=== PATIENT | male | born 1970 | race Caucasian/White ===

== ENCOUNTER 2022-07-12 10:09 | Emergency (ER) | payer OTHER, MEDICARE ==
[2022-07-12 10:58] LABS: Acetaminophen Less than 10.0 mcg/mL (10.0-30.0); Alcohol Less than 10 mg/dL (Less than 10); Salicylate Less than 8.0 mg/dL (15.0-30.0)
[2022-07-12 10:59] LABS: #Basophils 0.1 10x3/uL (0.0-0.2); #Eosinphils 0.1 10x3/uL (0.0-0.5); #Monocytes 0.7 10x3/uL (0.0-1.1); #Neutrophils 7.7 10x3/uL (1.5-8.4); %Basophils 0.6 % (0.0-2.0); %Eosinophils 1.3 % (0.0-6.0); %Lymphocytes 12.8 % (18.0-47.0); %Monocytes 6.9 % (0.0-10.0); %Neutrophils 77.8 % (40.0-75.0); Hemoglobin 14.5 g/dL (13.5-17.5); Mean Corpuscular HGB CONC 32.4 g/dL (32.0-36.0); Mean Corpuscular Hemoglobin 29.7 pg (27.0-33.0); Mean Corpuscular Volume 91.8 fl (81.2-95.1); Mean Platelet Volume 9.5 fl (7.4-10.4); Platelet Count 409 10x3/uL (150-450); RBC Distribution Width 12.2 % (11.5-14.5); Red Blood Cell (RBC) Count 4.88 10x6/uL (4.32-5.72); White Blood Cell (WBC) Count 9.8 10x3/uL (3.5-10.5)
[2022-07-12 11:03] LABS: ALT (SGPT) 22 U/L (8-55); AST (SGOT) 17 U/L (5-34); Acetaminophen Less than 10.0 mcg/mL (10.0-30.0); Albumin 3.9 g/dL (3.5-5.0); Alkaline Phosphatase 52 U/L (40-110); Anion Gap 10 mmol/L (10-20); BUN (Urea Nitrogen) 13 mg/dL (8.4-25.7); Bilirubin, Total 0.5 mg/dL (0.2-1.2); CK (CPK) 79 U/L (30-200); Calc. Creatinine Clearance 0 mL/min (70-130); Calcium 9.5 mg/dL (7.8-10.44); Carbon Dioxide 30 mmol/L (22-29); Chloride 105 mmol/L (98-107); Estimated GFR 89; Globulin 3.6 g/dL (2.4-3.5); Glucose 107 mg/dL (70-105); Potassium 4.8 mmol/L (3.5-5.1); Protein, Total 7.5 g/dL (6.0-8.3); Salicylate Less than 8.0 mg/dL (15.0-30.0); Sodium 140 mmol/L (136-145)
== END 2022-07-12 12:38 | disposition home or self-care (01) ==
LOC: CSHERS 10:09
DX: F79 Unspecified intellectual disabilities (principal); K62.5 Hemorrhage of anus and rectum
CPT/HCPCS: 36415; 80053; 80143; 80179; 80307; 82550; 84443; 85025; 93005

== ENCOUNTER 2022-07-12 15:24 | Emergency (ER) | payer OTHER, MEDICARE | END 2022-07-12 16:11 | disposition home or self-care (01) | LOC: CSHERS 15:24 | DX: M25.551 Pain in right hip (principal) | CPT/HCPCS: 99283 ==

== ENCOUNTER 2022-07-13 07:25 | Emergency (ER) | payer OTHER, MEDICARE | END 2022-07-13 07:51 | disposition home or self-care (01) | LOC: CSHERS 07:25 | DX: R51.9 Headache, unspecified (principal); M54.9 Dorsalgia, unspecified; Z76.5 Malingerer [conscious simulation] | CPT/HCPCS: 99284 ==

== ENCOUNTER 2023-10-30 09:32 | Emergency (ER) | payer MEDICAID, MEDICARE ==
[2023-10-30 10:13] LABS: Bilirubin Neg (Negative); Blood, Urine 10 (Negative); Clarity Clear (Clear); Glucose, Urine (Dipstick) Normal (Negative); Ketone, Urine 15 mg/dL (Negative); Leukocyte Negative (Negative); Nitrite Negative (Negative); Protein, Urine (Dipstick) Negative (Neg-Trace); Specific Gravity, Urine 1.015 (1.005-1.030); Urobilinogen Normal mg/dL (Less than 2)
[2023-10-30 10:24] LABS: Amphetamine Not Detected (NotDetected); Barbiturates Screen Not Detected (NotDetected); Benzodiazepine Screen Not Detected (NotDetected); Cocaine Metabolite Screen Not Detected (NotDetected); Methadone Not Detected (NotDetected); Methamphetamine Not Detected (NotDetected); Opiate Screen Not Detected (NotDetected); Oxycodone Screen Not Detected (NotDetected); Phencyclidine (PCP) Not Detected (NotDetected); THC/Cannabinoid Screen Not Detected (NotDetected); Tricyclic Screen Not Detected (NotDetected)
[2023-10-30 10:30] LABS: #Basophils 0.07 10x3/uL (0.0-0.2); #Eosinphils 0.09 10x3/uL (0.0-0.5); #Neutrophils 6.25 10x3/uL (1.5-8.4); %Basophils 0.8 % (0.0-2.0); %Lymphocytes 18.7 % (18.0-47.0); %Monocytes 5.8 % (0.0-10.0); %Neutrophils 72.9 % (40.0-75.0); Hematocrit 49.3 % (38.8-50.0); Hemoglobin 16.4 g/dL (13.5-17.5); Mean Corpuscular HGB CONC 33.3 g/dL (32.0-36.0); Mean Corpuscular Hemoglobin 28.9 pg (27.0-33.0); Mean Corpuscular Volume 86.9 fL (81.2-95.1); Mean Platelet Volume 9.9 fL (7.4-10.4); Platelet Count 340 10x3/uL (150-450); RBC Distribution Width 13.4 % (11.5-14.5); Red Blood Cell (RBC) Count 5.67 10x6/uL (4.32-5.72); White Blood Cell (WBC) Count 8.6 10x3/uL (3.5-10.5)
[2023-10-30 10:37] LABS: CAUTI Indications for Culture Alt mental st,lethar; RBC/HPF 0-3 HPF (0-3); Squamous Epithelial 0-3 HPF (0-3); WBC/HPF 0-3 HPF (0-3)
[2023-10-30 10:39] LABS: Bacteria/HPF 1+ HPF (None Seen); Mucous/LPF 1+ LPF (<2+)
[2023-10-30 10:40] LABS: Urine Culture Reflex No No
[2023-10-30 10:42] LABS: ALT (SGPT) 25 U/L (8-55); AST (SGOT) 23 U/L (5-34); Albumin 3.9 g/dL (3.5-5.0); Alkaline Phosphatase 55 U/L (40-110); Anion Gap 16 mmol/L (10-20); BUN (Urea Nitrogen) 10 mg/dL (8.4-25.7); Bilirubin, Total 0.9 mg/dL (0.2-1.2); Calc. Creatinine Clearance 0 mL/min (70-130); Calcium 9.8 mg/dL (7.8-10.44); Carbon Dioxide 22 mmol/L (22-29); Chloride 106 mmol/L (98-107); Estimated GFR 76; Globulin 3.8 g/dL (2.4-3.5); Glucose 107 mg/dL (70-105); Potassium 5.1 mmol/L (3.5-5.1); Protein, Total 7.7 g/dL (6.0-8.3); Sodium 139 mmol/L (136-145)
[2023-10-30 10:43] LABS: Acetaminophen Less than 10 mcg/mL (10.0-30.0); Alcohol Less than 10.0 mg/dL (Less than 10); Salicylate Less than 8.0 mg/dL (15.0-30.0)
[2023-10-30] MEDS ORDERED: OLANZapine 2.5 MG TAB ONE (10:55)
== END 2023-10-30 12:29 | disposition home or self-care (01) ==
LOC: CSHERS 09:32
DX: F20.9 Schizophrenia, unspecified (principal); R45.1 Restlessness and agitation; Z79.899 Other long term (current) drug therapy
CPT/HCPCS: 36415; 80053; 80306; 80307; 81001; 84443; 85025; 93005

== ENCOUNTER 2023-11-08 06:29 | Emergency (ER) | payer MEDICARE ==
[2023-11-08] MEDS ORDERED: Ziprasidone 20 MG CAP ONE (06:52)
[2023-11-08 07:06] LABS: #Basophils 0.07 10x3/uL (0.0-0.2); #Eosinphils 0.17 10x3/uL (0.0-0.5); #Monocytes 0.66 10x3/uL (0.0-1.1); #Neutrophils 6.08 10x3/uL (1.5-8.4); %Basophils 0.8 % (0.0-2.0); %Lymphocytes 18.8 % (18.0-47.0); %Monocytes 7.6 % (0.0-10.0); %Neutrophils 69.9 % (40.0-75.0); Hemoglobin 15.8 g/dL (13.5-17.5); Mean Corpuscular HGB CONC 34.3 g/dL (32.0-36.0); Mean Corpuscular Hemoglobin 29.9 pg (27.0-33.0); Mean Platelet Volume 10.1 fL (7.4-10.4); Platelet Count 276 10x3/uL (150-450); RBC Distribution Width 13.2 % (11.5-14.5); Red Blood Cell (RBC) Count 5.29 10x6/uL (4.32-5.72); White Blood Cell (WBC) Count 8.7 10x3/uL (3.5-10.5)
[2023-11-08] MEDS ORDERED: Aripiprazole 10 MG TAB PO SCH (07:15)
[2023-11-08 07:19] LABS: Anion Gap 13 mmol/L (10-20); BUN (Urea Nitrogen) 15 mg/dL (8.4-25.7); Calc. Creatinine Clearance 0 mL/min (70-130); Calcium 8.9 mg/dL (7.8-10.44); Carbon Dioxide 24 mmol/L (22-29); Chloride 108 mmol/L (98-107); Estimated GFR 94; Glucose 107 mg/dL (70-105); Potassium 4.5 mmol/L (3.5-5.1); Sodium 140 mmol/L (136-145)
[2023-11-08 07:21] LABS: Acetaminophen Less than 10 mcg/mL (10.0-30.0); Alcohol Less than 10.0 mg/dL (Less than 10); Salicylate Less than 8.0 mg/dL (15.0-30.0)
[2023-11-08 07:32] LABS: Amphetamine Not Detected (NotDetected); Barbiturates Screen Not Detected (NotDetected); Benzodiazepine Screen Not Detected (NotDetected); Cocaine Metabolite Screen Not Detected (NotDetected); Methadone Not Detected (NotDetected); Methamphetamine Not Detected (NotDetected); Opiate Screen Not Detected (NotDetected); Oxycodone Screen Not Detected (NotDetected); Phencyclidine (PCP) Not Detected (NotDetected); THC/Cannabinoid Screen Not Detected (NotDetected); Tricyclic Screen Not Detected (NotDetected)
== END 2023-11-08 09:02 | disposition home or self-care (01) ==
LOC: CSHERS 06:29
DX: F41.9 Anxiety disorder, unspecified (principal); F20.9 Schizophrenia, unspecified; R45.851 Suicidal ideations; R44.3 Hallucinations, unspecified
CPT/HCPCS: 80048; 80306; 80307; 85025; 99285

== ENCOUNTER 2024-11-24 08:06 | Emergency (ER) | payer MEDICARE ==
[2024-11-24 08:44] LABS: #Basophils 0.05 10x3/uL (0.0-0.2); #Eosinophils 0.11 10x3/uL (0.0-0.5); #Monocytes 0.57 10x3/uL (0.0-1.1); #Neutrophils 4.46 10x3/uL (1.5-8.4); %Basophils 0.7 % (0.0-2.0); %Eosinophils 1.6 % (0.0-6.0); %Lymphocytes 23.0 % (18.0-47.0); %Monocytes 8.3 % (0.0-10.0); %Neutrophils 65.2 % (40.0-75.0); Hematocrit 46.1 % (38.8-50.0); Hemoglobin 14.8 g/dL (13.5-17.5); Mean Corpuscular Hemoglobin 27.7 pg (27.0-33.0); Mean Corpuscular Volume 86.3 fL (81.2-95.1); Platelet Count 274 10x3/uL (150-450); Red Blood Cell (RBC) Count 5.34 10x6/uL (4.32-5.72); White Blood Cell (WBC) Count 6.84 10x3/uL (3.5-10.5)
[2024-11-24 08:58] LABS: Glucose, Urine (Dipstick) Normal (Negative); Leukocyte Negative (Negative); Protein, Urine (Dipstick) 15 mg/dl (Neg-Trace); Specific Gravity, Urine 1.025 (1.005-1.030)
[2024-11-24 09:00] LABS: ALT (SGPT) 27 U/L (Less than 45); AST (SGOT) 22 U/L (11-34); Acetaminophen Less than 10 mcg/mL (Less than 10); Albumin 3.9 g/dL (3.1-4.5); Alkaline Phosphatase 51 U/L (40-110); Anion Gap 13 mmol/L (10-20); BUN (Urea Nitrogen) 18 mg/dL (8.4-25.7); Bilirubin, Total 0.5 mg/dL (0.3-1.2); Calc. Creatinine Clearance 0 mL/min (70-130); Calcium 8.9 mg/dL (7.8-10.44); Carbon Dioxide 25 mmol/L (22-29); Chloride 108 mmol/L (98-107); Globulin 3.4 g/dL (2.4-3.5); Glucose 128 mg/dL (70-105); Potassium 3.9 mmol/L (3.5-5.1); Salicylate Less than 8.0 mg/dL (Less than 8.0); Sodium 142 mmol/L (136-145)
[2024-11-24 09:06] LABS: Cocaine Metabolite Screen Negative (Negative); THC/Cannabinoid Screen Negative (Negative); Tricyclic Screen PRELIM POSITIVE (Negative)
[2024-11-24 09:15] LABS: Bacteria/HPF Rare-Few HPF (None Seen); CAUTI Indications for Culture Alt mental st,lethar; Mucous/LPF 1+ LPF (<2+); RBC/HPF 0-3 HPF (0-3); WBC/HPF 0-3 HPF (0-3)
[2024-11-24 09:16] LABS: Urine Culture Reflex No No
== END 2024-11-24 09:38 | disposition home or self-care (01) ==
LOC: CSHERS 08:06
DX: R45.86 Emotional lability (principal)
CPT/HCPCS: 36415; 80053; 80306; 80307; 81001; 85025; 99285

== ENCOUNTER 2024-11-24 20:07 | Emergency (ER) | payer MEDICARE | END 2024-11-24 23:47 | LOC: CSHERS 20:07 | DX: R45.851 Suicidal ideations (principal); R45.850 Homicidal ideations; R45.86 Emotional lability | CPT/HCPCS: 36415; 80053; 80306; 80307; 81001; 85025; 99285 ==

== ENCOUNTER 2024-12-27 06:24 | Emergency (ER) | payer MEDICARE ==
[2024-12-27 06:58] LABS: Glucose, Urine (Dipstick) Normal (Negative); Leukocyte Negative (Negative); Protein, Urine (Dipstick) 15 mg/dl (Neg-Trace); Specific Gravity, Urine 1.015 (1.005-1.030)
[2024-12-27 07:05] LABS: Cocaine Metabolite Screen Negative (Negative); THC/Cannabinoid Screen Negative (Negative); Tricyclic Screen Negative (Negative)
[2024-12-27 07:05] LABS: #Basophils 0.06 10x3/uL (0.0-0.2); #Eosinophils 0.11 10x3/uL (0.0-0.5); #Monocytes 0.54 10x3/uL (0.0-1.1); #Neutrophils 4.95 10x3/uL (1.5-8.4); %Basophils 0.8 % (0.0-2.0); %Eosinophils 1.6 % (0.0-6.0); %Lymphocytes 19.5 % (18.0-47.0); %Monocytes 7.6 % (0.0-10.0); %Neutrophils 69.9 % (40.0-75.0); Hematocrit 46.9 % (38.8-50.0); Hemoglobin 14.8 g/dL (13.5-17.5); Mean Corpuscular Hemoglobin 27.6 pg (27.0-33.0); Mean Corpuscular Volume 87.3 fL (81.2-95.1); Platelet Count 255 10x3/uL (150-450); Red Blood Cell (RBC) Count 5.37 10x6/uL (4.32-5.72); White Blood Cell (WBC) Count 7.08 10x3/uL (3.5-10.5)
[2024-12-27 07:06] LABS: Bacteria/HPF None Seen HPF (None Seen); CAUTI Indications for Culture Alt mental st,lethar; RBC/HPF 0-3 HPF (0-3); WBC/HPF None Seen HPF (0-3)
[2024-12-27 07:07] LABS: Urine Culture Reflex No No
[2024-12-27 07:20] LABS: ALT (SGPT) 23 U/L (Less than 45); AST (SGOT) 26 U/L (11-34); Albumin 4.0 g/dL (3.1-4.5); Alkaline Phosphatase 49 U/L (40-110); Anion Gap 13 mmol/L (10-20); BUN (Urea Nitrogen) 10 mg/dL (8.4-25.7); Bilirubin, Total 0.9 mg/dL (0.3-1.2); Calc. Creatinine Clearance 0 mL/min (70-130); Calcium 9.2 mg/dL (7.8-10.44); Carbon Dioxide 26 mmol/L (22-29); Chloride 107 mmol/L (98-107); Globulin 3.4 g/dL (2.4-3.5); Glucose 102 mg/dL (70-105); Potassium 5.1 mmol/L (3.5-5.1); Sodium 141 mmol/L (136-145)
[2024-12-27 07:21] LABS: Acetaminophen Less than 10 mcg/mL (Less than 10); Salicylate Less than 8.0 mg/dL (Less than 8.0)
== END 2024-12-27 09:50 | disposition home or self-care (01) ==
LOC: CSHERS 06:24 → EEVIPCON 06:24 → CSHERS 09:50
DX: Z13.30 Encounter for screening examination for mental health and behavioral disorders, unspecified (principal)
CPT/HCPCS: 36415; 80053; 80306; 80307; 81001; 84443; 85025; 99283